=== PATIENT | female | born 1990 | race Caucasian/White ===

== ENCOUNTER → 2016-06-29 | Outpatient (CLI) | payer OTHER ==
[2016-06-29 14:37] LABS: CH 24.3; CHCM 30.7; HCT 28.4 % (34.0-46.0); HDW 3.45; HGB 9.2 gm/dL (11.4-16.0); Hypochromasia Marked; MCH 25.5 pg (25.0-35.0); MCHC 32.2 g/dL (31.0-37.0); MCV 79.2 fL (80.0-100.0); Mean Platelet Volume 7.2; Poikilocytosis Slight; RBC 3.59 m/uL (3.80-5.40); RDW 13.7 % (11.5-15.5); WBC 15.3 k/uL (3.8-10.6)
== END ==
LOC: LABWHC1 12:52
PROVIDERS: ATTEND Obstetrics & Gynecology
DX: Z34.92 Encounter for supervision of normal pregnancy, unspecified, second trimester (principal); Z3A.00 Weeks of gestation of pregnancy not specified
CPT/HCPCS: 36415; 82950; 85027

== ENCOUNTER 2016-09-01 08:40 | Outpatient (CLI) | payer OTHER ==
[2016-09-01 09:21] LABS: Appearance,Urine Cloudy (Clear); Bacteria,Urine Rare /hpf; Bilirubin,Urine Negative (Negative); Glucose,Urine (UA) Negative (Negative); Ketones,Urine 4+ (Negative); Leukocyte Esterase,Urine Trace (Negative); Mucus,Urine Occasional /hpf; Nitrite,Urine Negative (Negative); PH, Urine 6.5 (5.0-8.0); Particle Count 6445; Protein,Urine 1+ (Negative); RBC,Urine 1 /hpf (0-5); Specific Gravity,Urine 1.022 (1.001-1.035); Squamous Epithelial Cell,Urine 3 /hpf (0-4); UA Billing (MACRO vs. MICRO) MICRO; WBC,Urine 2 /hpf (0-5)
[2016-09-01] MEDS ORDERED: LACTATED RINGERS 1,000 ML IV ONE ×2 (10:30→12:00)
[2016-09-01] MEDS ORDERED: LACTATED RINGERS 1,000 ML IV SCH (10:30)
[2016-09-01 10:38] VITALS: BP 138/76; PULSE 127; RESP 16; TEMP 96.7
== END 2016-09-01 13:30 | disposition home or self-care (01) ==
LOC: FBPOP 08:40
PROVIDERS: ATTEND Obstetrics & Gynecology
DX: O47.1 False labor at or after 37 completed weeks of gestation (principal); Z3A.38 38 weeks gestation of pregnancy
CPT/HCPCS: 59025; 81001; 96360; 96361; 99214

== ENCOUNTER 2016-09-09 22:15 | Inpatient (IN) | payer OTHER ==
[2016-09-09] MEDS ORDERED: TERBUTALINE 1 MG/ML VIAL SQ PRN (22:43)
[2016-09-09] MEDS ORDERED: LIDOCAINE 1% (PF) 10 MG/ML (30 ML SDV) SQ PRN (22:43)
[2016-09-09] MEDS ORDERED: CARBOPROST TROMETHAMINE 250 MCG/ML 1 ML AMP IM PRN (22:43)
[2016-09-09] MEDS ORDERED: METHYLERGONOVINE 0.2 MG/ML 1 ML AMP IM PRN (22:43)
[2016-09-09] MEDS ORDERED: OXYTOCIN 10 UNIT/ML 1 ML VIAL IM PRN (22:43)
[2016-09-09] MEDS ORDERED: OXYTOCIN 20 UNITS/1000 ML NS 1,000 ML IV SCH (22:45)
[2016-09-09] MEDS: LACTATED RINGERS 1,000 ML IV SCH ×2 (22:59→23:21)
[2016-09-09] MEDS ORDERED: SODIUM CHLORIDE 0.9% 100 ML BAG ONE (23:01)
[2016-09-09] MEDS ORDERED: fentaNYL (PF) 50 MCG/ML 5 ML AMP ONE (23:01)
[2016-09-09] MEDS ORDERED: BUPIVACAINE (PF) 0.25% 30 ML VIAL ONE (23:01)
[2016-09-09 23:26] LABS: Anisocytosis Slight; Basophils % (A) 0 %; CH 21.2; CHCM 30.2; Eosinophils # (A) 0.1 k/uL (0-0.7); Eosinophils % (A) 1 %; HCT 30.3 % (34.0-46.0); HDW 3.86; HGB 9.1 gm/dL (11.4-16.0); Hypochromasia Marked; Luc # (Auto) 0.34; Luc % (Auto) 2; Lymphocytes # (A) 3.7 k/uL (1.0-4.8); Lymphocytes % (A) 22 %; MCH 21.2 pg (25.0-35.0); MCV 70.6 fL (80.0-100.0); Mean Platelet Volume 9.2; Microcytosis Moderate; Monocytes # (A) 0.8 k/uL (0-1.0); Monocytes % (A) 5 %; Neutrophils # (A) 11.7 k/uL (1.3-7.7); Neutrophils % (A) 70 %; Poikilocytosis Slight; RBC 4.28 m/uL (3.80-5.40); RDW 16.1 % (11.5-15.5); WBC 16.6 k/uL (3.8-10.6); WBC (Perox) 17.22
--- NOTE | 2016-09-10 00:17 | P.HPOB ---
History of Present Illness H&P Date: 09/10/16 Chief Complaint: Spontaneous rupture membranes This is a 25-year-old female 3 para 2 with an estimated date of confinement of 09/12/2016, estimated gestational age of 39-5/7 weeks, who presents to labor and delivery with complaints of spontaneous rupture of membranes at approximately 6 PM. She is complaining of contractions that to become stronger and more regular. care has been with Dr. Spann and has been uncomplicated. labs: Random glucose-87 Hepatitis B surface antigen-negative Hemoglobin-11.8 Syphilis antibody-nonreactive Rubella-immune Group B streptococcus-negative Blood type-A+ Antibody-negative Gonorrhea/Chlamydia-negative HIV-nonreactive Obstetrical ultrasound-normal anatomy Obstetrical history: . History of 2 vaginal deliveries at term with no complications. Gynecologic history: No history of sexual transmitted diseases. Review of Systems Constitutional: Denies chills, Denies fever Eyes: denies blurred vision, denies pain Cardiovascular: Denies chest pain, Denies shortness of breath Respiratory: Denies cough Gastrointestinal: Reports abdominal pain (Contractions) Genitourinary: Reports pelvic pain, Reports Musculoskeletal: Denies myalgias Integumentary: Denies pruritus, Denies rash Neurological: Denies numbness, Denies weakness Past Medical History Past Medical History: No Reported History History of Any Multi-Drug Resistant Organisms: None Reported Past Surgical History: No Surgical Hx Reported Past Psychological History: No Psychological Hx Reported Smoking Status: Current every day smoker Past Alcohol Use History: None Reported Past Drug Use History: None Reported Medications and Allergies Home Medications Medication Instructions Recorded Confirmed Type Pnv,Calcium 72/Iron/Folic Acid 1 tab PO DAILY 09/10/16 09/10/16 History [ Plus Tablet] Allergies Allergy/AdvReac Type Severity Reaction Status Date / Time Cephalosporins Allergy Unknown Verified 09/10/16 00:15 red dye Allergy Anaphylaxis Verified 09/09/16 22:42 Exam Osteopathic Statement: *. No significant issues noted on an osteopathic structural exam other than those noted in the History and Physical/Consult. - Vital Signs Vital signs: Intake and Output 09/09/16 09/09/16 09/10/16 14:59 22:59 06:59 Other: Weight 81.647 kg Patient Weight 09/10/16 06:59 Weight 81.647 kg HEENT: Within normal limits Heart: Regular rate and rhythm Lungs: Clear to auscultation bilaterally Abdomen: Cervix: Initially was 3 cm/100%/-1 station Amnisure: Positive, clear fluid noted heart tones: Reactive Contractions: Approximately every 2 minutes Extremities: Negative Homans Results Result Diagrams: 09/09/16 22:35 Abnormal Lab Results - Last 24 Hours (Table) 09/09/16 Range/Units 22:35 WBC 16.6 H (3.8-10.6) k/uL Hgb 9.1 L (11.4-16.0) gm/dL Hct 30.3 L (34.0-46.0) % MCV 70.6 L (80.0-100.0) fL MCH 21.2 L (25.0-35.0) pg MCHC 30.0 L (31.0-37.0) g/dL RDW 16.1 H (11.5-15.5) % Neutrophils # 11.7 H (1.3-7.7) k/uL Assessment and Plan (1) 39 weeks gestation of Status: Acute (2) Spontaneous rupture of membranes Status: Acute Plan: Proceed with expectant management. Epidural anesthesia.
--- NOTE | 2016-09-10 00:18 | P.PROBDLV ---
Vaginal Delivery Note - . Vaginal Delivery Note: The patient received epidural anesthesia and then progressed very rapidly to complete dilation. 's head came to a crown. She began pushing once the was close to . 's head came to a crown and then delivered across the perineum followed by the anterior shoulder. She was instructed to stop pushing and nose and mouth were bulb suctioned at the perineum. Nuchal cord 2 was reduced around the infant's neck and then with one further push the remainder the easily delivered and was placed on mother's abdomen. Brisk cry is noted immediately. Cord was clamped and cut and infant was taken to warmer for evaluation. A viable male infant is noted with scores of 9 at 1 minute and 9 at 5 minutes and weight of 7 lbs. 12 oz. Placenta delivered shortly thereafter, intact, with a three-vessel cord. Uterus contracted well after oxytocin was given and uterine massage was carried out. Inspection of the perineum revealed no perineal lacerations. Estimated blood loss was approximately 100 mL's. Both mother and infant are in stable condition.
[2016-09-10 03:09] VITALS: BMI 30.9
[2016-09-10] MEDS ORDERED: LANOLIN CREAM 5 GM TUBE TOPICAL PRN (03:28)
[2016-09-10] MEDS ORDERED: Acetaminophen-Codeine 300-30mg TAB PO PRN ×2 (03:28)
[2016-09-10] MEDS ORDERED: diphenhydrAMINE 25 MG CAP PO PRN (03:28)
[2016-09-10] MEDS ORDERED: HYDROCORTISONE 2.5% RECTAL CREAM 30 GM TUBE RECTAL PRN (03:28)
[2016-09-10] MEDS ORDERED: diphenhydrAMINE 50 MG CAP PO PRN (03:28)
[2016-09-10] MEDS ORDERED: WITCH HAZEL 1 EACH MED..PAD TOPICAL PRN (03:28)
[2016-09-10] MEDS ORDERED: SIMETHICONE 80 MG CHEWABLE PO PRN (03:28)
[2016-09-10] MEDS ORDERED: ACETAMINOPHEN TAB 325 MG TAB PO PRN (03:28)
[2016-09-10] MEDS ORDERED: ZOLPIDEM 5 MG TAB PO PRN (03:28)
[2016-09-10] MEDS: IBUPROFEN 600 MG TAB PO PRN ×4 (03:41→23:43)
--- NOTE | 2016-09-10 08:49 | P.PNOBGVD ---
Subjective - Subjective Principal diagnosis: post day 1 Interval history: Overall Adore is doing very well. She is ambulating, voiding, and she is tolerating her diet. She voices no complaints at this time. Vital signs are stable and afebrile. Heart regular, lungs clear, extremities without pain. Assessment day 1. Plan continue care Patient reports: Reports appetite normal, Reports voiding normally, Reports pain well controlled, Reports ambulating normally : doing well Objective - Latest Vital Signs Latest vital signs: Vital Signs Temp Pulse Resp BP Pulse Ox 09/10/16 07:48 97.8 F 89 18 119/73 09/10/16 02:59 96.9 F L 113 H 16 138/77 98 09/10/16 02:10 98.4 F 100 16 115/59 09/10/16 01:40 98.2 F 104 H 16 132/69 09/10/16 01:10 111 H 16 101/65 09/10/16 00:55 113 H 16 106/70 09/10/16 00:40 111 H 16 112/74 09/10/16 00:25 97.1 F L 110 H 16 109/58 09/10/16 00:10 97.1 F L 112 H 16 117/55 Intake and Output 09/09/16 09/10/16 09/10/16 22:59 06:59 14:59 Output Total 100 Balance -100 Output: Estimated Blood Loss 100 Other: # Voids 1 Weight 81.647 kg 81.647 kg - Labs Labs: Abnormal Lab Results - Last 24 Hours (Table) 09/09/16 Range/Units 22:35 WBC 16.6 H (3.8-10.6) k/uL Hgb 9.1 L (11.4-16.0) gm/dL Hct 30.3 L (34.0-46.0) % MCV 70.6 L (80.0-100.0) fL MCH 21.2 L (25.0-35.0) pg MCHC 30.0 L (31.0-37.0) g/dL RDW 16.1 H (11.5-15.5) % Neutrophils # 11.7 H (1.3-7.7) k/uL
[2016-09-11] MEDS: IBUPROFEN 600 MG TAB PO PRN (06:01)
[2016-09-11 07:08] LABS: Anisocytosis Slight; Basophils # (A) 0.1 k/uL (0-0.2); Basophils % (A) 0 %; CH 21.1; CHCM 30.4; Eosinophils # (A) 0.2 k/uL (0-0.7); Eosinophils % (A) 1 %; HCT 27.7 % (34.0-46.0); HDW 3.89; HGB 8.4 gm/dL (11.4-16.0); Hypochromasia Marked; Luc % (Auto) 2; Lymphocytes # (A) 4.5 k/uL (1.0-4.8); Lymphocytes % (A) 27 %; MCH 21.2 pg (25.0-35.0); MCHC 30.4 g/dL (31.0-37.0); MCV 69.8 fL (80.0-100.0); Mean Platelet Volume 6.4; Microcytosis Marked; Monocytes # (A) 0.8 k/uL (0-1.0); Monocytes % (A) 5 %; Neutrophils # (A) 10.5 k/uL (1.3-7.7); Neutrophils % (A) 64 %; Poikilocytosis Slight; RBC 3.97 m/uL (3.80-5.40); RDW 16.4 % (11.5-15.5); WBC 16.4 k/uL (3.8-10.6); WBC (Perox) 16.96
--- NOTE | 2016-09-11 09:18 | P.DS ---
Providers Date of admission: 09/09/16 22:15 Expected date of discharge: 09/11/16 Attending physician: Ryan Spann Primary care physician: Stated None Hospital Course: Adore is seen and evaluated day 2. She is ambulating, voiding, tolerating her diet. She voices no complaints. Vital signs are stable and she is afebrile. Heart regular, lungs clear, extremities without pain. Abdomen is soft uterus is firm and lochia is reported be light. Assessment day 2. Plan discharged home follow up with me in 6 weeks. Prescription for pain medication has been provided and all questions are answered with discharge instructions thoroughly reviewed. Patient Condition at Discharge: Good Plan - Discharge Summary New Discharge Prescriptions: New Acetaminophen-Codeine 300-30mg [Tylenol #3] 1 tab PO Q4H PRN #30 tablet PRN Reason: Pain Ibuprofen [Motrin] 600 mg PO Q6HR PRN #30 tab PRN Reason: Pain No Action Pnv,Calcium 72/Iron/Folic Acid [ Plus Tablet] 1 tab PO DAILY Discharge Medication List Pnv,Calcium 72/Iron/Folic Acid [ Plus Tablet] 1 tab PO DAILY 09/10/16 [ History] Acetaminophen-Codeine 300-30mg [Tylenol #3] 1 tab PO Q4H PRN #30 tablet [Rx] Ibuprofen [Motrin] 600 mg PO Q6HR PRN #30 tab 09/11/16 [Rx] Follow up Appointment(s)/Referral(s): Ryan Spann DO [Doctor of Osteopathic Medicine] - 6 Weeks Activity/Diet/Wound Care/Special Instructions: No heavy lifting limited stairs and driving and pelvic rest. If any high temperatures, heavy bleeding, or severe pain call my office Discharge Disposition: HOME SELF-CARE
[2016-09-11 09:28] VITALS: BP 125/71; PULSE 77; RESP 20; TEMP 98.1
== END 2016-09-11 11:45 | disposition home or self-care (01) | DRG 775 ==
LOC: 4FBP 22:15
PROVIDERS: ADMIT Obstetrics & Gynecology; ATTEND Obstetrics & Gynecology
PROC: 10E0XZZ Delivery of Products of Conception, External Approach (ICD-10-PCS; principal; 2016-09-09)
PROC: 00HU33Z Insertion of Infusion Device into Spinal Canal, Percutaneous Approach (ICD-10-PCS; 2016-09-10)
PROC: 3E0R3CZ (ICD-10-PCS; 2016-09-10)
DX: O69.81X0 Labor and delivery complicated by cord around neck, without compression, not applicable or unspecified (principal); F17.200 Nicotine dependence, unspecified, uncomplicated; O99.334 Smoking (tobacco) complicating childbirth; Z37.0 Single live birth; Z3A.39 39 weeks gestation of pregnancy
CPT/HCPCS: 85025; 88307